=== PATIENT | female | born 2000 | race African-American/Black ===

== ENCOUNTER 2023-04-11 12:10 | Emergency (ER) | payer MEDICAID ==
[~2023-04-11] VITALS: Ht 167.6 cm; Wt 104.0 kg
[2023-04-11 12:18] VITALS: O2SAT 99
[2023-04-11] MEDS ORDERED: DOXY-456 MT (13:27)
[2023-04-11] MEDS ORDERED: DOXYCYCLINE HYCLATE 100MG CAPSULE PO ONE (13:30)
[2023-04-11] MEDS ORDERED: CEFTRIAXONE SODIUM 500 MG/VIAL IM ONE (13:30)
[2023-04-11 14:29] VITALS: BP 136/79; PULSE 84; RESP 19; TEMP 98
[2023-04-13 13:11] LABS: CHLAMYDIA TRACHOMATIS NAA Negative (Negative); NEISSERIA GONORRHOEAE NAA Negative (Negative)
== END 2023-04-11 14:36 | disposition home or self-care (01) ==
LOC: ER 12:36
DX: N76.0 Acute vaginitis (principal)
CPT/HCPCS: 87491; 87591; 81025; 96372; 99283; J0696; Z7610 ×2